=== PATIENT | male | born 1955 | race Caucasian/White ===

== ENCOUNTER 2022-08-15 23:55 | Emergency (ER) | payer BC, SELFPAY ==
--- NOTE | 2022-08-16 00:28 | CRLHL7_ITS ---
For Patients: As a result of the Century Cures Act, medical imaging exams and procedure reports are released immediately into your electronic medical record. You may view this report before your referring provider. If you have questions, please contact your health care provider. INDICATION: Lifting object and felt pain. Posterior Lumbar level, injury, Back Pain TECHNIQUE: Lumbar spine radiograph 3 views COMPARISON: None FINDINGS: Bone: No acute fractures or aggressive bone lesions are identified. Alignment is normal. Disc: Small endplate osteophytes present at L3 and L4. Moderate bilateral facet osteoarthritis is seen at L4-5 and L5-S1. Soft tissue: Atherosclerotic calcification of the abdominal aorta is noted. No radiopaque foreign bodies are seen. IMPRESSION: 1. No acute osseous injuries or abnormalities are noted. Dictated by Simone Sal MD @ 08/16/2022 1:00:34 AM Dictated by: Simone Sal MD @ 08/16/2022 01:00:37 (Electronically Signed)
--- NOTE | 2022-08-16 00:29 | ED_ITS ---
HPI - Back Pain/Injury General Chief Complaint: Back Injury/Pain Stated Complaint: Back Pain Time Seen by Provider: 08/15/22 23:57 History of Present Illness HPI Narrative: Patient is a 67-year-old gentleman with history of insulin-dependent diabetes mellitus cerebrovascular accident and coronary artery disease who presents with pain in his lumbar spine. Patient began having pain in his back 3 days ago after lifting some heavy objects in his garage. The pain is in the low lumbar spine mostly to the left of the midline. No significant radiculopathy down the legs. No bowel or bladder symptoms no weakness no numbness no tingling. Patient has no nausea no vomiting no changes bowel or bladder. Related Data Home Medications Medication Instructions Recorded Confirmed albuterol sulfate 90 mcg/actuation 2 puff inhalation QID PRN 08/16/22 08/16/22 aerosol inhaler atorvastatin 80 mg tablet 80 mg PO DAILY 08/16/22 08/16/22 dulaglutide 4.5 mg/0.5 mL 4.5 mg subcut 08/16/22 subcutaneous pen injector (Pavegen Systemsulicity) insulin degludec 100 unit/mL (3 34 unit subcut DAILY 08/16/22 08/16/22 mL) subcutaneous pen (Tresiba FlexTouch U-100 insulin) losartan 100 mg tablet 100 mg PO DAILY 08/16/22 08/16/22 metformin 500 mg tablet,extended 1,000 mg PO BID 08/16/22 08/16/22 release 24 hr metoprolol succinate 25 mg 25 mg PO DAILY 08/16/22 08/16/22 tablet,extended release 24 hr omega-3 acid ethyl esters 1 gram PO 08/16/22 capsule simvastatin 40 mg tablet 40 mg PO QPM 08/16/22 08/16/22 Allergies Allergy/AdvReac Type Severity Reaction Status Date / Time Penicillins AdvReac Severe Anaphylaxis Verified 08/16/22 00:28 Review of Systems Status of ROS: Reports: 10 or more systems reviewed and unremarkable except as noted in History and below [facility] Medical History Cerebrovascular accident ?I63.9 - Cerebral infarction, unspecified (ICD-10) Coronary artery disease ?I25.10 - Atherosclerotic heart disease of [place] coronary artery without angina pectoris (ICD-10) Diabetes mellitus ?E11.9 - Type 2 diabetes mellitus without complications (ICD-10) Social History Smoking Status: Never smoker Do you use any of these nicotine containing products: None Second hand tobacco smoke exposure: No How often do you have a drink containing alcohol: monthly or less How many standard drinks containing alcohol do you have on a typical day: 1 or 2 How often do you have six or more drinks on one occasion: Never AUDIT-C Alcohol total score: 1 Non-prescribed substance use: denies use Exam Narrative: Exam Narrative: EXAM GENERAL: Patient appears comfortable and well. EYES: No scleral icterus. LYMPH: No supraclavicular or cervical lymphadenopathy. SKIN: Visible skin seen during exam normal or with benign process only. EXT: No dependent lower extremity pedal edema. HEART: Regular rate and rhythm with no murmurs, rubs, or gallops. LUNGS: Clear to auscultation bilaterally with no crackles or wheezes. ABD: Soft, non tender, non distended. PSYCH: Good eye contact, speech is not pressured. Neurologic cranial nerves 2-12 grossly intact. Musculoskeletal exam shows mild pain to palpation of lumbar spine. Const: Vital Signs, click to edit/add: Vital Signs - 24 hr 08/16/22 00:30 Temperature 97.8 F Pulse Rate [Pulse Oximeter] 80 Respiratory Rate 16 Blood Pressure [Le ft Upper Arm] 147/100 H Pulse Oximetry 96 Oxygen Delivery Me thod Room Air Course Course Hospital Course: Patient seen examined. X-ray of the lumbar spine series pending. Vital Signs Vital signs: Initial Vital Signs Temperature 97.8 F 08/16/22 00:30 Temperature Source Temporal Artery Scan 08/16/22 00:30 Pulse Rate 80 08/16/22 00:30 Pulse Rhythm Regular 08/16/22 00:30 Respiratory Rate 16 08/16/22 00:30 Blood Pressure 147/100 H 08/16/22 00:30 Blood Pressure Mean 115 08/16/22 00:30 Pulse Oximetry 96 08/16/22 00:30 Oxygen Delivery Method Room Air 08/16/22 00:30 Vital Signs Temperature 97.8 F 08/16/22 00:30 Pulse Rate 80 08/16/22 00:30 Respiratory Rate 16 08/16/22 00:30 Blood Pressure 147/100 H 08/16/22 00:30 Pulse Oximetry 96 08/16/22 00:30 Oxygen Delivery Method Room Air 08/16/22 00:30 Temperature 97.8 F 08/16/22 00:30 Pulse Rate 80 08/16/22 00:30 Respiratory Rate 16 08/16/22 00:30 Blood Pressure 147/100 H 08/16/22 00:30 Pulse Oximetry 96 08/16/22 00:30 Oxygen Delivery Method Room Air 08/16/22 00:30 MDM - Back Pain/Injury MDM Narrative Medical decision making narrative: Patient is a 67-year-old gentleman who comes in today with low back pain after lifting heavy objects several days ago. He has no neurologic or radicular symptoms. He is taking Tylenol and ibuprofen with limited success. He is icing and is undergoing physical therapy for a stroke in the past. X-rays unremarkable he has no focal findings on exam is vital signs are all normal. Patient is an insulin-dependent diabetic and we are going to avoid prednisone treating with Vicodin 1-2 every 4-6 as needed. Follow-up with primary care in this coming week. Differential Diagnosis Differential diagnosis: Likely lumbar radiculopathy, sciatica, strain of lumbar region, renal colic, thoracic back pain and discitis Discharge Plan Discharge Clinical Impression: Strain of lumbar region Patient Disposition: Home, Self-Care Condition: Stable Instructions: Back Pain (ED) Additional Instructions: Ice Motrin Vicodin as needed Advancement of activity as tolerated Follow Up with your doctor this week. Activity Level: No Restrictions Discharge Diet: Regular Prescriptions: No Action atorvastatin 80 mg tablet 80 mg PO DAILY simvastatin 40 mg tablet 40 mg PO QPM metoprolol succinate 25 mg tablet extended release 24 hr 25 mg PO DAILY albuterol sulfate 90 mcg/actuation HFA aerosol inhaler 2 puff inhalation QID PRN losartan 100 mg tablet 100 mg PO DAILY metformin 500 mg tablet extended release 24 hr 1,000 mg PO BID omega-3 acid ethyl esters 1 gram capsule PO insulin degludec [Tresiba FlexTouch U-100] 100 unit/mL (3 mL) insulin pen 34 unit subcut DAILY Trulicity 4.5 mg/0.5 mL pen injector 4.5 mg subcut Follow Up/Referrals: Solo Holbrook MD [Primary Care Provider] - Stand Alone Forms: [facility] Info Instructions
[2022-08-16 00:30] VITALS: BP 147/100; PULSE 80; RESP 16; TEMP 36.6; O2SAT 96; BMI 30.6
--- OUTSIDE RECORDS SUMMARY | 2022-08-16 01:14 | XMS_ITS | Continuity of Care Document ---
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 Role Phone Antionette HARPER, Lydia Unavailable Unavailable Medications Medication Instructions Dosage Effective Dates (start - stop) Status Comments metoprolol succinate ER 25 mg tablet,extended release 24 hr take 1 tablet by oral route every day 25 MG - Active losartan 50 mg tablet take 1 tablet by oral route every day 50 MG - Active simvastatin 40 mg tablet take 1 tablet b y oral route every day in the evening 40 MG - Active aspirin 81 mg tablet,delayed release take 1 tablet by oral route every day 81 MG - Active MiralaxBisacodylMagCit Colon Prep Use as directed - No Longer Active Procedures Procedure Date Adenoma(s), Other Neoplasm Detected Duri ng Screen Colonoscopy Flex; W/remov Les- 18 Level Iv-surg Path Gross/micro 18 Advance Directives Directive Yes / No Effective Date File Name No Information Encounters Encounter Description Practice Location Reason(s) For Visit Diagnoses Date Provider Providers Copied on Encounter [facility], [address] [address], [place], [id number], tel:[phone] Aliyah [facility] Polyp of colon, unspecified part of colon, unspecified typeDiverticulosi s large intestine w/o perforation or abscess w/o bleedingHemorrhoi ds, unspecified hemorrhoid typeEncounter for screening for malignant neoplasm of colonBenign neoplasm of cecum 8 Antionette Freeman. [address] [facility], [facility] [address], [place], [place], [id number] , [place]. tel: [phone] Referring Provider: Referral Self. [facility], [address] [address], [place], [place], [id number], [place] tel:[phone] [facility] No Information Reginaldo Miles. [address] [facility], [place], [place], [id number] , [place]. tel: [phone] Family History Family Member Type Diagnosis Age At Onset Brother Problem (finding) alcoholism Mother Problem (finding) Father Problem (finding) Cancer, unknown Son Problem (finding) Alive and well Daughter Problem (finding) asthma Daughter Problem (finding) celiac disease Payers Payer name Insurance type Covered libertarian ID Authoraca corry(s) [facility] [id number] Social History Type Description Quantity Date Captured Comments Alcohol Use Details Unknown Caffeine Use Details Unknown Tobacco Use Status No Information Smoking Status Never smoker Sex Male Vital Signs Date / Time: Height Weight BMI Pulse Rate Blood Pressure Temperature Respiratory Rate Body Surface Area Head Circumference Head Circ. Percentile Wt./Donnie. Percentile BMI percentile Pulse Ox Inhaled Ox 69.00 in 106.300 kg (234.40 lbs) 34.6 0 kg/m eter (2) 98 /min 139/102 mm[Hg] 0.00 F 16 /min 96 % 0.00 in 0.000 kg (0.00 lbs) 34.6 0 kg/m eter (2) 86 /min 120/86 mm[Hg] 0.00 F 16 /min 92 % 0.00 in 0.000 kg (0.00 lbs) 34.6 0 kg/m eter (2) 83 /min 128/92 mm[Hg] 0.00 F 16 /min 95 % Chief Complaint And Reason For Visit No Information Reason For Referral Reason For Referral No Information Plan Of Treatment Date Type Action Status No Information History Of Present Illness Encounter Date Complaint History Of Prese nt Illness No Information Functional Status Date Functional Assessmen t No Information Instructions Date Instruction Additional Infor mation No Information Assessments Type Assessment Date assessment Polyp of colon, unspecified part of colon, unspecified type assessment Diverticulosis large intestine w/o perforation or abscess w/o bleeding assessment Hemorrhoids, unspecified hemorrh oid type Patient Care Teams Name Effective Dates (start - stop) Status Members No Information
== END 2022-08-16 01:18 | disposition home or self-care (01) ==
LOC: ED 08-16 01:05
PROVIDERS: Emergency Provider Internal Medicine
DX: S39.012A Strain of muscle, fascia and tendon of lower back, initial encounter (principal); X50.0XXA Overexertion from strenuous movement or load, initial encounter
CPT/HCPCS: 72100; 99283

== ENCOUNTER 2022-08-18 22:45 | Emergency (ER) | payer BC, SELFPAY ==
[2022-08-18 22:53] VITALS: BP 164/101; PULSE 84; RESP 18; TEMP 36.7; BMI 30.6
--- OUTSIDE RECORDS SUMMARY | 2022-08-18 23:27 | XMS_ITS | Continuity of Care Document ---
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 [address] [facility], [facility] [address], [place], [place], [id number] , [place]. tel: [phone] Referring Provider: Referral Self. [facility], [address] [address], [place], [place], [id number], [place] tel:[phone] [facility] No Information Reginaldo Miles. [address] [facility], [address], [place], [place], [id number] , [place]. tel: [phone] Family History Family Member Type Diagnosis Age At Onset Brother Problem (finding) alcoholism Mother Problem (finding) Father Problem (finding) Cancer, unknown Son Problem (finding) Alive and well Daughter Problem (finding) asthma Daughter Problem (finding) celiac disease Payers Payer name Insurance type Covered alliance party ID Authoraca corry(s) [facility] [id number] Social History Type Description Quantity Date Captured [...]
[2022-08-18 23:34] VITALS: BP 155/74; PULSE 79; RESP 18; TEMP 36.8
[2022-08-18 23:35] VITALS: BP 155/74; PULSE 79; RESP 18; TEMP 36.8
--- NOTE | 2022-08-19 14:46 | ED.GENADULT ---
HPI - General Adult General Chief complaint: Back Injury/Pain Stated complaint: back pain Time Seen by Provider: 08/18/22 22:47 History of Present Illness HPI narrative: 67-year-old man accompanied by spouse to the emergency department with complaint of left low back area pain as he was lifting a weight trying to set against a wall it shifted and felt sudden pain which is amplified. He was seen 2 days ago in this emergency department. Was offered prednisone which he declined in the setting of his diabetes. He is anxious not to adversely affect his hemoglobin A1c. Sounds like blood sugars have been pretty well controlled. He was also given a small prescription of [place] which he does have a little remaining. Is starting to have pain wrapping around both hips. It does not radiate down buttock or legs otherwise. Worsened with walking and somewhat straightening. He says he can sit all day long. I find him in a seated position clearly uncomfortable. He is still in rehab following CVA. They are feeling that he might benefit from and/or wondering why he could not have a muscle relaxer. Related Data Home Medications Medication Instructions Recorded Confirmed albuterol sulfate 90 mcg/actuation 2 puff inhalation QID PRN 08/16/22 08/18/22 aerosol inhaler atorvastatin 80 mg tablet 80 mg PO DAILY 08/16/22 08/18/22 dulaglutide 4.5 mg/0.5 mL 4.5 mg subcut Q7D 08/16/22 08/18/22 subcutaneous pen injector (Trulicity) insulin degludec 100 unit/mL (3 34 unit subcut DAILY 08/16/22 08/18/22 mL) subcutaneous pen (Tresiba FlexTouch U-100 insulin) losartan 100 mg tablet 100 mg PO DAILY 08/16/22 08/18/22 metformin 500 mg tablet,extended 1,000 mg PO BID 08/16/22 08/18/22 release 24 hr metoprolol succinate 25 mg 25 mg PO DAILY 08/16/22 08/18/22 tablet,extended release 24 hr omega-3 acid ethyl esters 1 gram 1 cap PO DAILY 08/16/22 08/18/22 capsule simvastatin 40 mg tablet 40 mg PO QPM 08/16/22 08/18/22 Allergies Allergy/AdvReac Type Severity Reaction Status Date / Time Penicillins AdvReac Severe Anaphylaxis Verified 08/18/22 22:58 Review of Systems Status of ROS: Reports: 6 or more systems reviewed and unremarkable except as noted in History and below [facility] Medical History Cerebrovascular accident ?I63.9 - Cerebral infarction, unspecified (ICD-10) Coronary artery disease ?I25.10 - Atherosclerotic heart disease of [place] coronary artery without angina pectoris (ICD-10) Diabetes mellitus ?E11.9 - Type 2 diabetes mellitus without complications (ICD-10) Surgical History No significant past surgical history Social History Smoking Status: Never smoker Do you use any of these nicotine containing products: None Second hand tobacco smoke exposure: No How often do you have a drink containing alcohol: monthly or less How many standard drinks containing alcohol do you have on a typical day: 1 or 2 How often do you have six or more drinks on one occasion: Never AUDIT-C Alcohol total score: 1 Non-prescribed substance use: denies use Exam Narrative: Exam Narrative: Pleasant. Clearly uncomfortable but breathing easily. Seated in the bed. Right leg flexed. No lower extremity edema. Extremities are well perfused. Moving all extremities actually without notable difficulty. Uncomfortable clearly to go to standing position. Examination of the back--has pain superior and medial a little bit to the left SI joint. No midline tenderness. Straight leg raise actually negative. Denise's is uncomfortable but not exactly positive. No reproduction of pain to anterior compression of the hips. Const: Vital Signs, click to edit/add: Vital Signs - 24 hr 08/18/22 22:53 08/18/22 23:34 08/18/22 23:35 Temperature 98.0 F 98.2 F 98.2 F Pulse Rate [Right Pulse Oximeter] 84 79 79 Respiratory Rate 18 18 18 Blood Pressure [Ri ght Upper Arm] 164/101 H 155/74 H 155/74 H Oxygen Delivery Me thod Room Air Room Air Documenting provider has reviewed patient's vital signs: yes Course Vital Signs Vital signs: Initial Vital Signs Temperature 98.0 F 08/18/22 22:53 Temperature Source Temporal Artery Scan 08/18/22 22:53 Pulse Rate 84 08/18/22 22:53 Respiratory Rate 18 08/18/22 22:53 Blood Pressure 164/101 H 08/18/22 22:53 Blood Pressure Mean 122 08/18/22 22:53 Blood Pressure Position Sitting 08/18/22 22:53 Oxygen Delivery Method Room Air 08/18/22 22:53 Vital Signs Temperature 98.0 F 08/18/22 22:53 Pulse Rate 84 08/18/22 22:53 Respiratory Rate 18 08/18/22 22:53 Blood Pressure 164/101 H 08/18/22 22:53 Oxygen Delivery Method Room Air 08/18/22 22:53 Temperature 98.2 F 08/18/22 23:35 Pulse Rate 79 08/18/22 23:35 Respiratory Rate 18 08/18/22 23:35 Blood Pressure 155/74 H 08/18/22 23:35 Oxygen Delivery Method Room Air 08/18/22 23:34 Medical Decision Making MDM Narrative Medical decision making narrative: I am not convinced that there is a radicular component here. It seems more like a back strain. Maybe facet inflammation and resulting muscles spasm. Sacroiliac joint on the left may have been partly involved. I would offer him reassurance regarding his hemoglobin A1c. Type 2 diabetic I do not think will affect his blood sugars too badly. He will consider. A prescription will be available if he chooses to. Answering questions regarding muscle relaxer as more of a sedative, we can certainly try that. Sounds like cyclobenzaprine has actually worked quite well for him in the past. See patient discharge plan. Discharge Plan Discharge Clinical Impression: Strain of lumbar region Patient Disposition: Home w/ Parent or Adult Condition: Stable Additional Instructions: I like those ice bags with the screw top lids-- fill with ice and water. You might try icing that SI joint we were talking about. See handout on some stretches you might consider for your low back. I am wondering if some of those radiating symptoms that you are feeling is really due to muscle tension and so you're feeling it wrapping around your hips. If there is a disc involved though, and anywhere that there is inflammation, steroids can be helpful. I understand your concerns I think of taking prednisone. Prescription available but you decide. Maybe you are better at controlling/knowing how to control your blood sugars than you used to be? I would take the prednisone as 60 mg daily for 2 days then 40 mg daily for 4 days then 20 mg daily for 2 days. Please call tomorrow to schedule follow-up with your primary care provider. You already have a relationship with physical therapy. Usually they need a referral to address another body part but maybe they would be willing to get to work on you sooner. Perhaps with a little food, can take up to 800 mg of ibuprofen 3 times daily or up to 500 mg of naproxen 2 times daily. You also will have cyclobenzaprine from [facility]. If all this isn't enough, then the Percocet from [facility] might be used. Prescriptions: No Action atorvastatin 80 mg tablet 80 mg PO DAILY simvastatin 40 mg tablet 40 mg PO QPM metoprolol succinate 25 mg tablet extended release 24 hr 25 mg PO DAILY albuterol sulfate 90 mcg/actuation HFA aerosol inhaler 2 puff inhalation QID PRN losartan 100 mg tablet 100 mg PO DAILY metformin 500 mg tablet extended release 24 hr 1,000 mg PO BID omega-3 acid ethyl esters 1 gram capsule 1 cap PO DAILY insulin degludec [Tresiba FlexTouch U-100] 100 unit/mL (3 mL) insulin pen 34 unit subcut DAILY Trulicity 4.5 mg/0.5 mL pen injector 4.5 mg subcut Q7D Follow Up/Referrals: Provider,Not a Local [Primary Care Provider] - Stand Alone [facility]
== END 2022-08-18 23:40 | disposition home or self-care (01) ==
PROVIDERS: Emergency Provider Family Medicine
DX: S39.012A Strain of muscle, fascia and tendon of lower back, initial encounter (principal)
CPT/HCPCS: 99283